=== PATIENT | female | born 1975 | race Two or more races ===

== ENCOUNTER 2021-12-14 11:20 | Outpatient (CLI) | payer MEDICAID | END 2021-12-14 23:59 | disposition home or self-care (01) | LOC: LAB 11:20 | PROVIDERS: ATTEND Surgery | DX: Z01.812 Encounter for preprocedural laboratory examination (principal); Z20.822 Contact with and (suspected) exposure to COVID-19 | CPT/HCPCS: C9803; U0003 ==

== ENCOUNTER 2021-12-21 06:30 | Day surgery (SDC) | payer MEDICAID ==
--- NOTE | 2021-12-21 06:45 | NUR ---
MS [facility]MONIA DISTILLER NOTE: PATIENT ARRIVED TO UNIT AT 0645. OBTAINED VS, URINE AND MRSA SWAB SAMPLES. IV ACCESS TO R AC 20 GAUGE OBTAINED ON 1ST ATTEMPT. FLUSHED WITHOUT COMPLICATION. CLINICAL CHECK LIST COMPLETE. PMH KEWEENAW DISEASE, MIKE'S DISEASE.
--- NOTE | 2021-12-21 07:30 | NUR ---
RN OPENING NOTES Patient has an order for right subclavian port-a-cath removal today, consent for the procedure obtained from patient, verbalized understanding of the procedure, reminded patient that he cannot have any food or water, verbalized understanding and gratitude. Consents signed by patient and are filed in patients chart. No apparent distress noted, respirations even and unlabored, no SOB, denies any pain or discomfort at this time, no grimacing. Call light left within reach, safety precautions in place, brakes locked, side rails up X 2, will monitor closely for any changes.
--- NOTE | 2021-12-21 08:18 | NUR ---
nt left for surgery around 10:15am, remained NPO post-midnight, denies any abdominal pain, no apparent distress notes, no s/s of hypo/hyperglycemia, no change in level of consciousness, no tremors, denies any pain or discomfort, consents and checklist present in patients chart. Addendum: 12/21/21 at 0819 by REBECCA TOLEDO RN WRONG TIME DOCUMENTED, DISREGARD DOCUMENTATION
--- NOTE | 2021-12-21 08:18 | NUR ---
Patient left for surgery around 08:15am, remained NPO post-midnight, denies any abdominal pain, no apparent distress notes, no s/s of hypo/hyperglycemia, no change in level of consciousness, no tremors, denies any pain or discomfort, consents and checklist present in patients chart.
[2021-12-21] MEDS ORDERED: CLINDAMYCIN 900 MG/6 ML VIAL ONE (08:39)
[2021-12-21] MEDS ORDERED: MIDAZOLAM HCL 2 MG/2ML VIAL ONE (08:45)
[2021-12-21] MEDS ORDERED: BUPIVACAINE 0.5 % PF 150 MG/30 ML VIAL ONE (08:55)
[2021-12-21] MEDS ORDERED: LIDOCAINE 0.5% HCL 50 ML VIAL ONE (09:02)
[2021-12-21] MEDS ORDERED: LIDOCAINE 1% INJ 50 ML MDV IJ ONE (09:02)
--- NOTE | 2021-12-21 10:05 | NUR ---
Patient came back from surgery around 1002am, S/P right subclavian port - a - cath removal by Rico Solis, site covered with dry dressing, no visible blood, no unusual odor noted, no unusual drainage, no redness, no swelling noted. Patient has stable condition, no apparent distress noted, denies any pain or discomfort at this time, no shortness of breath, afebrile, no respiratory distress. Patient came back with new orders noted and carried out by PACU nurse. Call light left within reach, will monitor closely for any changes.
--- NOTE | 2021-12-21 12:15 | NUR ---
Patient to be discharged home today, no apparent distress noted, no shortness of breath, respirations even and unlabored, denies any pain or discomfort. Patient made aware of the situation, she signed all discharge paper works, all belongings taken, inventory list signed by patient. Health teaching provided, verbalized understanding and gratitude. Reminded resident to schedule a follow up appointment with Rico Solis in 1-2 weeks. Skin assessment done prior to discharge, skin intact, warm to touch, no pallor or cyanosis noted. Patient has a dry dressing on her right subclavian area, no bleeding noted, no redness, no swelling noted. Peripheral IV line removed prior to discharge, complete and intact, no excessive bleeding noted, site covered with dry dressing. Name wristband removed prior to discharge, surgical mask provided for patient to use. RN assisted patient going to the hospital parking lot via wheelchair, left unit at 1215pm with father stable condition, exit care documents handed to patient.
== END 2021-12-21 18:00 | disposition home or self-care (01) ==
LOC: DS 06:30 → MED 06:31 → UNDOADMIN 06:31 → UNDODISIN 12:00 → DS 18:00
PROVIDERS: ATTEND Surgery
DX: Z45.2 Encounter for adjustment and management of vascular access device (principal); F32.9 Major depressive disorder, single episode, unspecified; I10 Essential (primary) hypertension; F41.9 Anxiety disorder, unspecified; E78.5 Hyperlipidemia, unspecified; Z88.0 Allergy status to penicillin; Z98.890 Other specified postprocedural states; Z79.899 Other long term (current) drug therapy
CPT/HCPCS: 36590; 84703; 87081; 88300; J2250; J2704; J3490 ×5; J7030; C9803; G0378; U0003